=== PATIENT | female | born 1990 | race Caucasian/White ===

== ENCOUNTER 2021-02-01 14:03 | Observation (INO) | payer OTHER ==
--- NOTE | 2021-02-01 16:25 | XRAY ---
Indication: Evaluate SHELDON. Limited OB ultrasound performed to evaluate SHELDON. Single intrauterine with heart rate 123 BPM. Incidental nuchal umbilical cord. Four-quadrant SHELDON is 11.7 cm.
[2021-02-01 16:31] VITALS: BP 117/71; PULSE 108; O2SAT 99
[2021-02-01 16:48] LABS: Amphetamine,Urine NEGATIVE (NEGATIVE); Barbiturate,Urine NEGATIVE (NEGATIVE); Benzodiazepine,Urine NEGATIVE (NEGATIVE); Cocaine,Urine NEGATIVE (NEGATIVE); Methadone,Urine NEGATIVE (NEGATIVE); Opiate,Urine NEGATIVE (NEGATIVE); PCP,Urine NEGATIVE (NEGATIVE); THC,Urine NEGATIVE (NEGATIVE)
== END 2021-02-01 16:15 | disposition home or self-care (01) ==
LOC: OB 14:03
PROVIDERS: ADMIT Family Medicine; ATTEND Family Medicine
DX: Z34.83 Encounter for supervision of other normal pregnancy, third trimester (principal); Z3A.32 32 weeks gestation of pregnancy
CPT/HCPCS: 59025; 76815; 80307; G0378

== ENCOUNTER 2021-02-09 07:58 | Observation (INO) | payer OTHER ==
[2021-02-09 08:33] VITALS: BP 122/59
[2021-02-09 08:42] VITALS: PULSE 92
--- NOTE | 2021-02-09 08:54 | XRAY ---
Indication: Evaluate SHELDON. Limited OB ultrasound performed to evaluate SHELDON. Four-quadrant SHELDON is 15.2 cm, largest pocket 4.6 cm.
== END 2021-02-09 09:07 | disposition home or self-care (01) ==
LOC: OB 07:58
PROVIDERS: ADMIT Family Medicine; ATTEND Family Medicine
DX: Z34.83 Encounter for supervision of other normal pregnancy, third trimester (principal); Z3A.33 33 weeks gestation of pregnancy
CPT/HCPCS: 59025; 76815; G0378

== ENCOUNTER 2021-02-16 07:57 | Observation (INO) | payer OTHER ==
[2021-02-16 08:27] VITALS: BP 103/65; PULSE 98
--- NOTE | 2021-02-16 09:26 | XRAY ---
Indication: Evaluate SHELDON. Limited OB ultrasound demonstrates single intrauterine with heart rate 137 BPM. Four-quadrant SHELDON is 17 cm, previously 15.2 cm on February 09, 2021.
== END 2021-02-16 09:20 | disposition home or self-care (01) ==
LOC: OB 07:57
PROVIDERS: ADMIT Family Medicine; ATTEND Family Medicine
DX: Z34.83 Encounter for supervision of other normal pregnancy, third trimester (principal); Z3A.34 34 weeks gestation of pregnancy
CPT/HCPCS: 59025; 76815; G0378

== ENCOUNTER 2021-02-23 08:07 | Observation (INO) | payer OTHER ==
--- NOTE | 2021-02-23 09:38 | XRAY ---
Indication: Evaluate SHELDON. Limited OB ultrasound performed to evaluate SHELDON. 4 quadrant SHELDON is 18.2 cm, previously 17 cm on February 16, 2021.
== END 2021-02-23 08:50 | disposition home or self-care (01) ==
LOC: OB 08:07
PROVIDERS: ADMIT Family Medicine; ATTEND Family Medicine
DX: Z34.83 Encounter for supervision of other normal pregnancy, third trimester (principal); Z3A.35 35 weeks gestation of pregnancy; Z87.59 Personal history of other complications of pregnancy, childbirth and the puerperium
CPT/HCPCS: 59025; 76815; G0378

== ENCOUNTER 2021-03-02 07:58 | Observation (INO) | payer OTHER ==
--- NOTE | 2021-03-02 09:09 | XRAY ---
Indication: Supervision of . Evaluate SHELDON. Limited OB ultrasound demonstrates single intrauterine with heart rate 120 BPM. Four-quadrant SHELDON is 20.4 cm, previously 18.2 cm on February 23, 2021.
[2021-03-05 17:01] VITALS: BP 113/73; PULSE 94; O2SAT 99
== END 2021-03-02 09:00 | disposition home or self-care (01) ==
LOC: OB 07:58
PROVIDERS: ADMIT Family Medicine; ATTEND Family Medicine
DX: Z34.83 Encounter for supervision of other normal pregnancy, third trimester (principal); Z3A.37 37 weeks gestation of pregnancy
CPT/HCPCS: 59025; 76815; G0378

== ENCOUNTER 2021-03-06 10:24 | Observation (INO) | payer OTHER ==
[2021-03-06 11:06] VITALS: BP 120/76; PULSE 108; O2SAT 100
[2021-03-06 11:21] LABS: BASOPHIL % 0.2 % (0.0-0.4); Basophil (Absolute #) 0.01 (0-0.4); Eosinophil % 0.4 % (0.00-5.0); Eosinophil (Absolute #) 0.02 (0-0.5); Hematocrit 29.7 % (35-47); Lymphocyte (Absolute #) 1.23 (1.0-4.6); Lymphocytes % 23.7 % (24.0-44.0); Mean Cell Volume 72.6 fl (78-100); Mean Corpuscular Hgb Concent. 30.3 g/dl (32-36); Mean Platelet Volume 10.4 fl (7.5-11.0); Monocyte (Absolute #) 0.44 (0.0-1.3); Monocytes % 8.5 % (0.0-12.0); Neutrophil % 67.2 % (36.0-66.0); Platelet Count 157 K/mm3 (150-450); Red Blood Count 4.09 M/mm3 (4.1-5.4); Red Cell Distribution Width 14.4 % (11.5-14.0); White Blood Count 5.2 K/mm3 (4.0-10.5)
[2021-03-06 11:36] LABS: ALBUMIN 2.8 g/dL (3.5-5.0); ALKALINE PHOSPHATASE 117 U/L (38-126); AMYLASE 35 U/L (30-110); ANION GAP 10.4 MEQ/L (5-15); BLOOD UREA NITROGEN 5 mg/dL (7-17); CHLORIDE 105 mmol/L (98-107); Calcium 8.6 mg/dL (8.4-10.2); Carbon Dioxide 23 mmol/L (22-30); Creatinine 1 0.56 mg/dL (0.52-1.04); EST GLOMERULAR FILTRATION RATE > 60.0 ML/MIN; Glucose 82 mg/dL (74-106); Potassium 3.9 mmol/L (3.5-5.1); SGOT/AST 21 U/L (14-36); SGPT/ALT 12 U/L (0-35); SODIUM 135 mmol/L (137-145); Total Protein 5.3 g/dL (6.3-8.2)
--- NOTE | 2021-03-06 12:29 | XRAY ---
Indication: Pain. Ultrasound biophysical profile exam performed. Comparison: None Single intrauterine with heart rate 139 BPM. Four-quadrant SHELDON is 14.5 cm, largest pocket 4.6 cm. 2 points given for breathing, movements, tone, and qualitative amniotic fluid volume. Impression: Total biophysical profile score is 8 out of 8.
--- NOTE | 2021-03-06 12:31 | XRAY ---
Indication: Epigastric pain. Third trimester . Two-dimensional gallbladder sonogram performed. Comparison: None Pancreas not well seen. Gallbladder normally distended without gallstones, wall thickening, or pericholecystic fluid. Common bile duct measures 3.7 mm. Remaining visualized liver and right kidney are sonographically unremarkable. Right kidney measures 11.3 cm in length. Impression: Nonvisualization pancreas. Remaining gallbladder sonogram is negative.
[2021-03-06 13:17] LABS: Slide Review 1 YES
== END 2021-03-06 12:44 | disposition home or self-care (01) ==
LOC: OB 10:24
PROVIDERS: ADMIT Family Medicine; ATTEND Family Medicine
DX: Z34.83 Encounter for supervision of other normal pregnancy, third trimester (principal); Z3A.37 37 weeks gestation of pregnancy
CPT/HCPCS: 36415; 76705; 76819; 80053; 82150; 83690; 85025; G0378

== ENCOUNTER 2021-03-16 07:55 | Observation (INO) | payer OTHER ==
[2021-03-16 09:20] VITALS: BP 121/72; PULSE 98; O2SAT 97
--- NOTE | 2021-03-16 15:04 | XRAY ---
Exam: OB ultrasound Limited from 03/16/2021. Comparison: OB ultrasound Limited from 03/02/2021. Indication: Follow-up SHELDON. Findings: A single live intrauterine fetus is seen in the cephalic lie. The heart rate measured 127 bpm. The amniotic fluid index measured 11.8 cm. This is within normal limits. Prior amniotic fluid index on 03/02/2021 was reported as 20.4 cm. The patient's due date by dates is 03/25/2021. Impression: 1. Current amniotic fluid index measures 11.8 cm, previously 20.4 cm on 03/02/2021.
== END 2021-03-16 09:58 | disposition home or self-care (01) ==
LOC: OB 07:55
PROVIDERS: ADMIT Family Medicine; ATTEND Family Medicine
DX: Z34.83 Encounter for supervision of other normal pregnancy, third trimester (principal); Z3A.38 38 weeks gestation of pregnancy
CPT/HCPCS: 59025; 76815; G0378

== ENCOUNTER 2021-03-19 08:25 | Inpatient (IN) | payer OTHER ==
[2021-03-19] MEDS ORDERED: Zofran 4 MG/2 ML VIAL IV PRN (17:00)
[2021-03-19 17:56] LABS: Absolute Neutrophil Ct (ANC) 2.92 (1.4-6.9); BASOPHIL % 0.4 % (0.0-0.4); Basophil (Absolute #) 0.02 (0-0.4); Eosinophil % 0.4 % (0.00-5.0); Eosinophil (Absolute #) 0.02 (0-0.5); Hematocrit 30.4 % (35-47); Hemoglobin 9.2 gm/dl (12.0-16.0); Lymphocyte (Absolute #) 1.17 (1.0-4.6); Lymphocytes % 25.7 % (24.0-44.0); Mean Cell Volume 70.4 fl (78-100); Mean Corpuscular Hemoglobin 21.3 pg (26-32); Mean Corpuscular Hgb Concent. 30.3 g/dl (32-36); Monocyte (Absolute #) 0.43 (0.0-1.3); Monocytes % 9.4 % (0.0-12.0); Neutrophil % 64.1 % (36.0-66.0); Platelet Count 160 K/mm3 (150-450); Red Blood Count 4.32 M/mm3 (4.1-5.4); White Blood Count 4.6 K/mm3 (4.0-10.5)
[2021-03-19] MEDS ORDERED: Lactated Ringers 1,000 ML IV SCH (18:00)
[2021-03-19] MEDS: CYTOTEC PO SCH ×4 (18:05→22:02)
[2021-03-19 18:21] LABS: Appearance CLOUDY (CLEAR); Bacteria FEW /HPF (NEGATIVE); Bilirubin NEGATIVE (NEGATIVE); Blood NEGATIVE Ery/ul (0-5); Epithelial Cells MODERATE /HPF (FEW); Glucose NEGATIVE (NEGATIVE); Ketones NEGATIVE (NEGATIVE); Leukocyte Esterase LARGE (NEGATIVE); Mucus SLIGHT /HPF (NEGATIVE); Nitrite NEGATIVE (NEGATIVE); Protein,Urine Dip NEGATIVE (Negative); Specific Gravity 1.018 (1.005-1.025); Urobilinogen NEGATIVE mg/dL (0-1)
[2021-03-19 18:27] LABS: Amphetamine,Urine NEGATIVE (NEGATIVE); Barbiturate,Urine NEGATIVE (NEGATIVE); Benzodiazepine,Urine NEGATIVE (NEGATIVE); Cocaine,Urine NEGATIVE (NEGATIVE); Methadone,Urine NEGATIVE (NEGATIVE); Opiate,Urine NEGATIVE (NEGATIVE); PCP,Urine NEGATIVE (NEGATIVE); THC,Urine NEGATIVE (NEGATIVE)
[2021-03-19 19:13] LABS: ABO TYPING B; Antibody Screen NEGATIVE (NEGATIVE); RH TYPING POSITIVE
[2021-03-19 19:51] LABS: Slide Review 1 YES
[2021-03-19] MEDS ORDERED: BRETHINE 1 MG/ML SQ PRN (20:07)
[2021-03-20] MEDS: CYTOTEC PO SCH ×4 (02:02→06:01)
[2021-03-20] MEDS: PITOCIN 30 UNITS/ LR 500 ML 30 UNITS/500 ML PLAST..BAG IV SCH (06:00)
[2021-03-20] MEDS ORDERED: PITOCIN 30 UNITS/ LR 500 ML 30 UNITS/500 ML PLAST..BAG IV SCH (06:00)
[2021-03-20] MEDS: Lactated Ringers 1,000 ML IV SCH ×4 (06:01→16:11)
[2021-03-20] MEDS ORDERED: Ephedrine Sulfate 50 MG/ML IV PRN (08:52)
[2021-03-20] MEDS ORDERED: FENTANYL 2 MCG-BUPIV 0.125%-NS 250 ML Epidur 250 ML EPIDURAL SCH (09:00)
[2021-03-20] MEDS ORDERED: Adacel Vial IM ONE (10:00)
[2021-03-20] MEDS ORDERED: Lactated Ringers 1,000 ML IV ONE (10:09)
[2021-03-20] MEDS ORDERED: XYLOCAINE 1% HCL 20 ML MDV ONE (10:41)
[2021-03-20] MEDS ORDERED: XYLOCAINE 1% HCL 20 ML MDV IJ PRN (14:00)
[2021-03-20] MEDS ORDERED: Reglan 10 MG/2 ML IV SCH (19:00)
[2021-03-20] MEDS ORDERED: SOD CITRATE-CITRIC ACID SOLN PO SCH (19:00)
[2021-03-20] MEDS ORDERED: Pepcid 20 MG VIAL IV SCH (19:00)
[2021-03-20] MEDS ORDERED: CEFAZOLIN 2 GM-D5W BAG** 2 GM/50 ML ML IV SCH (19:00)
[2021-03-20 19:02] LABS: Hematocrit 32.3 % (35-47); Hemoglobin 9.7 gm/dl (12.0-16.0); Mean Cell Volume 71.3 fl (78-100); Mean Corpuscular Hemoglobin 21.4 pg (26-32); Mean Platelet Volume 11.1 fl (7.5-11.0); Platelet Count 202 K/mm3 (150-450); Red Blood Count 4.53 M/mm3 (4.1-5.4); Red Cell Distribution Width 15.3 % (11.5-14.0); White Blood Count 14.1 K/mm3 (4.0-10.5)
[2021-03-20] MEDS ORDERED: SUBLIMAZE 100 MCG/2 ML ONE (19:16)
[2021-03-20] MEDS ORDERED: XYLOCAINE 2%/Epi 1:200000 20ML VIAL MPF ONE (19:17)
[2021-03-20 19:18] LABS: INR 0.98 (0.8-3.0); PROTIME 11.6 SECONDS (9.4-12.5)
[2021-03-20 19:21] LABS: PTT 25.8 SECONDS (25.1-36.5)
[2021-03-20] MEDS ORDERED: DIPRIVAN 200 MG/20 ML IV ONE (19:54)
[2021-03-20] MEDS ORDERED: LOPRESSOR 5 MG/5 ML INJECTION IV ONE (20:10)
[2021-03-20] MEDS ORDERED: PHENYLEPHRINE HCL ONE (20:10)
[2021-03-20] MEDS ORDERED: Astramorph-Pf 5 MG/10 ML ONE (20:10)
[2021-03-20] MEDS ORDERED: Nesacaine 3% -Mpf*** 20ML SDV ONE ×2 (20:14)
[2021-03-20] MEDS ORDERED: LANSINOH 40 GM TOP PRN (20:23)
[2021-03-20] MEDS ORDERED: CORTISONE 1% CREAM TP PRN (20:23)
[2021-03-20] MEDS ORDERED: Dulcolax 10 MG SUPP PR PRN (20:23)
[2021-03-20] MEDS ORDERED: Dermoplast Spray TP PRN (20:23)
[2021-03-20] MEDS ORDERED: TUCKS TP PRN (20:23)
[2021-03-20] MEDS ORDERED: Anucort-HC SUPPOSITORY PR PRN (20:23)
[2021-03-20] MEDS ORDERED: Mylicon 80MG PO PRN (20:23)
[2021-03-20] MEDS ORDERED: CLARITIN 10 MG PO PRN (20:33)
[2021-03-20] MEDS ORDERED: PERCOCET TABLET 5/325MG PO PRN (20:33)
[2021-03-20] MEDS ORDERED: DEMEROL 50 MG IV PRN (20:33)
[2021-03-20] MEDS ORDERED: Narcan 0.4 MG/ML IV PRN (20:33)
[2021-03-20] MEDS ORDERED: BENADRYL 50 MG/ML IV PRN (20:33)
[2021-03-20] MEDS ORDERED: MORPHINE SULFATE 2 MG INJ IV PRN (20:33)
[2021-03-20] MEDS ORDERED: HOLD NARCOTIC ANALGESICS AND SEDATIVES X24 HR MC PRN (20:33)
[2021-03-20] MEDS ORDERED: Nubain 10 MG/ML IV PRN (20:33)
[2021-03-20] MEDS ORDERED: Naropin 0.5% 30 ML VIAL ONE (20:39)
[2021-03-20] MEDS: Dextrose 5%-Lr IV Solution 1000 ML 1,000 ML IV SCH (21:13)
[2021-03-20 23:14] LABS: Appearance SLIGHTLY CLOUDY (CLEAR); Bilirubin NEGATIVE (NEGATIVE); Blood LARGE Ery/ul (0-5); Glucose NEGATIVE (NEGATIVE); Hyaline Casts 0-2 /LPF (0-2); Ketones MODERATE (NEGATIVE); Leukocyte Esterase TRACE (NEGATIVE); Mucus SLIGHT /HPF (NEGATIVE); Nitrite NEGATIVE (NEGATIVE); Protein,Urine Dip 100 (Negative); RBC >101 /HPF (0-2); Specific Gravity 1.015 (1.005-1.025); Urobilinogen NEGATIVE mg/dL (0-1)
[2021-03-21] MEDS: Dextrose 5%-Lr IV Solution 1000 ML 1,000 ML IV SCH ×3 (05:00→21:43)
[2021-03-21 05:19] LABS: Absolute Neutrophil Ct (ANC) 9.54 (1.4-6.9); BASOPHIL % 0.1 % (0.0-0.4); Basophil (Absolute #) 0.01 (0-0.4); Eosinophil (Absolute #) 0 (0-0.5); Hematocrit 23.1 % (35-47); Lymphocyte (Absolute #) 0.65 (1.0-4.6); Mean Cell Volume 71.5 fl (78-100); Mean Corpuscular Hemoglobin 21.1 pg (26-32); Mean Corpuscular Hgb Concent. 29.4 g/dl (32-36); Mean Platelet Volume 11.7 fl (7.5-11.0); Monocyte (Absolute #) 0.64 (0.0-1.3); Monocytes % 5.9 % (0.0-12.0); Platelet Count 165 K/mm3 (150-450); Red Blood Count 3.23 M/mm3 (4.1-5.4); Red Cell Distribution Width 14.9 % (11.5-14.0); White Blood Count 10.8 K/mm3 (4.0-10.5)
[2021-03-21 05:41] LABS: Hemoglobin 6.8 gm/dl (12.0-16.0)
--- NOTE | 2021-03-21 08:21 | OP ---
SURGERY DATE/TIME: 03/20/20211932 PREOPERATIVE DIAGNOSES: 1) Arrest of descent. 2) Term intrauterine . POSTOPERATIVE DIAGNOSES: 1) Arrest of descent. 2) macrosomia. 3) Cephalopelvic disproportion. PROCEDURE: Primary low transverse section. SURGEON: Alexx Lake M.D. ANESTHESIA: Epidural by Zac Davison CRNA. ESTIMATED BLOOD LOSS: 600 ml. IV FLUIDS: 800 ml of Crystalloid. URINE OUTPUT: 200 ml of clear straw-colored urine. SPECIMEN: Placenta was sent for pathology. DESCRIPTION OF PROCEDURE: The patient had progressed to full dilatation and pushed for over two hours of only caput below the +1 station. Therefore, she was consented for primary low transverse section. She was dosed in her labor room via her previously placed laboring epidural and then taken to the OR. Prepped and draped in the usual sterile fashion. After adequate level of anesthesia was assessed, a low transverse skin incision was made by knife and carried down through the subcutaneous fat to the level of the fascia. The fascia was nicked on both sides of the midline and extended horizontal using curved Sanchez scissors. The superior free edge of the fascia was grasped with Sanam clamps and the underlying rectus muscles were dissected free. The same was repeated inferiorly. The peritoneal cavity was opened and extended in horizontal bluntly. A bladder blade was created and reflected over the lower uterine segment. A transverse uterine incision was made by knife and carried down to the level of the amniotic membranes which were carefully artificially ruptured. A viable male with a nuchal cord x1 was delivered from the right occiput posterior presentation. The oropharynx and nares were bulb suctioned free. He had a strong cry immediately upon delivery. The cord was clamped and cut and he was handed off to the awaiting nursery team. Then the placenta was manually extracted. The uterus was exteriorized. The uterine cavity was sponge curetted clean with a lap sponge. The uterine incision was closed with #1 chromic in a running locked fashion with good closure and good hemostasis. There was some mild oozing from the left far lateral aspect of the incision. Therefore, a second layer of #1 chromic was used to reinforce this area and provide hemostasis. Posterior cul-de-sac was wiped free of blood and clot and the uterus was returned to the peritoneal cavity. The lateral gutters were wiped free of blood and clot. There was a small area of oozing noted after the uterus was returned to the peritoneal cavity around the left lateral aspect of the incision. 2-0 Vicryl was placed in a figure-of-8 fashion with good hemostasis achieved. No other abnormalities were noted. There was good hemostasis and good uterine closure. Next, the fascia was closed with 0 Vicryl in a running fashion with good closure and good hemostasis. The subcutaneous fat was irrigated with warm, sterile saline. Finally, the skin layer was closed with 4-0 undyed Vicryl in a running subcuticular fashion. Steri-Strips and occlusive dressing were placed over the incision and the patient was transferred to the recovery room in good condition.
[2021-03-21 08:30] LABS: Slide Review 1 YES
[2021-03-21 11:45] LABS: HBsAg Screen Negative (Negative)
[2021-03-21] MEDS: FERREX 150 PO SCH (12:09)
[2021-03-21] MEDS: Colace 100 MG PO SCH ×2 (12:09→21:51)
[2021-03-21] MEDS: MOTRIN 400 MG PO PRN ×2 (12:12→18:40)
[2021-03-21] MEDS: TYLENOL EXTRA STRENGTH 500 MG PO PRN ×2 (14:57→21:51)
[2021-03-21] MEDS ORDERED: Restoril 15 MG PO PRN (20:23)
[2021-03-21] MEDS ORDERED: Ambien 10 MG PO PRN (20:23)
[2021-03-21] MEDS ORDERED: NORCO 5/325 MG PO PRN (21:00)
[2021-03-21] MEDS ORDERED: DEMEROL 50 MG IV PRN (21:00)
[2021-03-21] MEDS: CYTOTEC PO SCH ×4 (21:38→21:41)
[2021-03-21] MEDS: PITOCIN 30 UNITS/ LR 500 ML 30 UNITS/500 ML PLAST..BAG IV SCH (21:43)
[2021-03-22] MEDS: MOTRIN 400 MG PO PRN ×2 (01:10→09:26)
[2021-03-22] MEDS: TYLENOL EXTRA STRENGTH 500 MG PO PRN (03:59)
--- NOTE | 2021-03-22 08:10 | PCM.DS ---
Discharge Summary Date of Admission: 03/20/21 08:25 Admitting Physician: TRAY BARRAGAN Consults: Consults on Case 03/20/21 08:52 Notify Anesthesia Provider PRN Primary Care Provider: TRAY BARRAGAN Allergies Allergies No Known Drug Allergies Allergy (Verified 03/21/21 21:46) Hospital Summary - Hospital Course Hospital Course: patient had primary for cpd, baby 9#4oz. arrival hemoglobin 9.2 postop 6.8 but asymptomatic. pain well controlled with tylenol and motrin. feels well - Vitals & Intake/Output Vital Signs: Vital Signs Temperature 97.2 F 03/22/21 02:00 Pulse Rate 82 03/22/21 02:00 Respiratory Rate 17 03/22/21 02:00 Blood Pressure 109/69 03/22/21 02:00 O2 Sat by Pulse Oximetry 99 03/22/21 02:00 Intake & Output: Intake & Output 03/19/21 03/20/21 03/21/21 03/22/21 11:59 11:59 11:59 11:59 Intake Total 5000 6781 2300 Output Total 1000 2650 1500 Balance 4000 4131 800 Weight 92.986 kg 92.986 kg - Lab Result Diagrams: 03/21/21 04:23 Lab Results-Last 24 Hrs: Lab Results-Last 24 Hours 03/19/21 03/21/21 Range/Units 17:41 04:23 Hep Bs Antigen Negative (Negative) Slides for Path Review YES Micro Results-Entire Visit: Microbiology 03/19/21 17:00 Urine Culture - Final Clean Catch Midstream <10K NORMAL SKIN DELGADO PROBABLE SKIN CONTAMINANT - Procedures and Test Procedures and Tests throughout Hospitalization: Therapy Orders & Screens 03/20/21 20:30 Standby ROUTINE Comment: Diagnosis: Induction of Labor Discharge Exam General Appearance: no apparent distress, alert Respiratory Exam: normal breath sounds, lungs clear, No respiratory distress Cardiovascular Exam: regular rate/rhythm, normal heart sounds Gastrointestinal/Abdomen Exam: soft, other (incision clean, dry, intact), No tenderness, No mass Extremity Exam: normal inspection, normal range of motion Final Diagnosis/Problem List - Final Discharge Diagnosis/Problem (1) delivery delivered Current Visit: Yes Status: Acute Code(s): O82 - ENCOUNTER FOR DELIVERY WITHOUT INDICATION (2) Anemia due to blood loss Current Visit: Yes Status: Acute Code(s): D50.0 - IRON DEFICIENCY ANEMIA SECONDARY TO BLOOD LOSS (CHRONIC) - Discharge Disposition: Home, Self-Care Condition: Stable Prescriptions: New Docusate Sodium [Colace] 100 mg PO BID #60 Continue Ferrous Sulfate 325 mg [Feosol 325 mg] 1 tab PO BID Vits W-Ca,Fe,FA(<1Mg) [] 1 tab PO DAILY Follow up with: TRAY BARRAGAN MD [Primary Care Provider] - 1 Week
[2021-03-22] MEDS: FERREX 150 PO SCH (09:27)
[2021-03-22] MEDS: Colace 100 MG PO SCH (09:27)
[2021-03-22] MEDS ORDERED: Adacel Vial IM ONE (10:00)
[2021-03-22 10:50] VITALS: BP 126/70; PULSE 110; O2SAT 100
== END 2021-03-22 16:10 | disposition home or self-care (01) | DRG 788 ==
LOC: OB 08:25 → OBSVTOIN 03-20 08:25 → OB 03-20 08:26
PROVIDERS: ADMIT Family Medicine; ATTEND Family Medicine
PROC: 10D00Z1 Extraction of Products of Conception, Low, Open Approach (ICD-10-PCS; principal; 2021-03-20)
DX: O33.9 Maternal care for disproportion, unspecified (principal); O33.5XX0 Maternal care for disproportion due to unusually large fetus, not applicable or unspecified; Z3A.39 39 weeks gestation of pregnancy; Z37.0 Single live birth; D50.9 Iron deficiency anemia, unspecified
CPT/HCPCS: 36415; 64488; 76937; 76942; 80307; 81001; 82947; 85025; 85027; 85610; 85730; 86850; 86900; 86901; 87086; 87340; 90715; 94799; G0378; J0690; J2274; J2370; J2590; J2704; J2795; J3010; L0625; A9270-GY

== ENCOUNTER 2023-07-02 04:56 | Inpatient (IN) | payer OTHER ==
[~2023-07-02 04:56] MED LIST: Anucort-HC SUPPOSITORY PR PRN
[2023-07-02 05:32] LABS: Absolute Neutrophil Ct (ANC) 3.68 x10^3/uL (1.4-6.9); BASOPHIL % 0.3 % (0.0-0.4); Basophil (Absolute #) 0.02 x10^3/uL (0-0.4); Eosinophil % 0.8 % (0.00-5.0); Eosinophil (Absolute #) 0.05 x10^3/uL (0-0.5); Hematocrit 33.4 % (35-47); Hemoglobin 10.3 g/dL (12.0-16.0); IMMATURE GRAN # 0.03 x10^3u/L (0.00-0.03); IMMATURE GRAN % 0.5 % (0.00-0.4); Lymphocyte (Absolute #) 1.73 x10^3/uL (1.0-4.6); Mean Cell Volume 71.1 fL (78-100); Mean Corpuscular Hemoglobin 21.9 pg (26-32); Mean Corpuscular Hgb Concent. 30.8 g/dL (32-36); Mean Platelet Volume 10.8 fL (7.5-11.0); Monocyte (Absolute #) 0.46 x10^3/uL (0.0-1.3); Monocytes % 7.7 % (0.0-12.0); Neutrophil % 61.7 % (36.0-66.0); Platelet Count 171 x10^3/uL (150-450); Red Cell Distribution Width 15.2 % (11.5-14.0)
[2023-07-02 05:47] LABS: INR 0.89 (0.8-3.0); PROTIME 9.8 SECONDS (9.4-12.5); PTT 25.2 SECONDS (25.1-36.5)
[2023-07-02 05:54] LABS: Amphetamine,Urine NEGATIVE (NEGATIVE); Barbiturate,Urine NEGATIVE (NEGATIVE); Benzodiazepine,Urine NEGATIVE (NEGATIVE); Cocaine,Urine NEGATIVE (NEGATIVE); Methadone,Urine NEGATIVE (NEGATIVE); Opiate,Urine NEGATIVE (NEGATIVE); PCP,Urine NEGATIVE (NEGATIVE); THC,Urine NEGATIVE (NEGATIVE)
[2023-07-02 05:55] LABS: Appearance Turbid (Clear); Bacteria Many /HPF (None Seen); Bilirubin Negative (Negative); Blood Negative (Negative); Epithelial Cells Many /HPF (None Seen); Glucose, Urine Negative (Negative); Ketones Trace (Negative); Leukocyte Esterase Moderate (Negative); Nitrite Negative (Negative); Ph 5.5 (4.6-8.0); Protein,Urine Dip Trace (Negative); Specific Gravity 1.025 (1.005-1.030)
[2023-07-02 06:06] LABS: Hyaline Casts 0-2 /LPF (0-2)
[2023-07-02 06:07] LABS: ADD URINE CULTURE? YES (NO)
[2023-07-02 06:11] LABS: ABO TYPING B; Antibody Screen NEGATIVE (NEGATIVE); RH TYPING POSITIVE
[2023-07-02] MEDS: Lactated Ringers 1,000 ML IV ONE (07:41)
[2023-07-02] MEDS: Reglan 10 MG/2 ML IV SCH (07:47)
[2023-07-02] MEDS: Pepcid 20 MG VIAL IV SCH (07:47)
[2023-07-02] MEDS: SOD CITRATE-CITRIC ACID SOLN PO SCH (07:47)
[2023-07-02] MEDS: CEFAZOLIN 2 GM-D5W BAG** 2 GM/50 ML ML IV SCH (07:48)
[2023-07-02] MEDS: Lactated Ringers 1,000 ML IV SCH (08:04)
[2023-07-02] MEDS ORDERED: Astramorph-Pf 5 MG/10 ML ONE (08:05)
[2023-07-02] MEDS ORDERED: Pitocin 10 UNITS/ML ONE (08:21)
[2023-07-02] MEDS ORDERED: PHENYLEPHRINE HCL ONE (08:39)
[2023-07-02] MEDS ORDERED: Naropin 0.5% 30 ML VIAL ONE (08:51)
[2023-07-02] MEDS ORDERED: Epinephrine Preservative Free 1 MG/ML ONE (08:51)
[2023-07-02] MEDS ORDERED: Versed 2 MG/2 ML Injection ONE (08:56)
[2023-07-02] MEDS ORDERED: Narcan 0.4 MG/ML IV PRN (09:00)
[2023-07-02] MEDS ORDERED: HOLD NARCOTIC ANALGESICS AND SEDATIVES X24 HR MC PRN (09:00)
[2023-07-02] MEDS ORDERED: DEMEROL 50 MG ONE (09:27)
[2023-07-02] MEDS ORDERED: Zofran 4 MG/2 ML VIAL ONE (09:56)
[2023-07-02] MEDS ORDERED: Nubain 10 MG/ML IV PRN (10:00)
[2023-07-02] MEDS ORDERED: DEMEROL 50 MG IV PRN (10:00)
[2023-07-02] MEDS ORDERED: BENADRYL 50 MG/ML IV PRN (10:00)
[2023-07-02] MEDS ORDERED: CLARITIN 10 MG PO PRN (10:00)
[2023-07-02] MEDS ORDERED: PERCOCET TABLET 5/325MG PO PRN (10:00)
[2023-07-02] MEDS ORDERED: CORTISONE 1% CREAM TP PRN (10:00)
[2023-07-02] MEDS ORDERED: Mylicon 80MG PO PRN (10:00)
[2023-07-02] MEDS ORDERED: MORPHINE SULFATE 2 MG INJ IV PRN (10:00)
[2023-07-02] MEDS ORDERED: LANSINOH 40 GM TOP PRN (10:00)
[2023-07-02] MEDS: Dextrose 5%-Lr IV Solution 1000 ML 1,000 ML IV SCH (10:31)
[2023-07-02] MEDS: Zofran 4 MG/2 ML VIAL IV PRN (11:08)
[2023-07-02] MEDS: D50W 50 ml Abboject IV ONE (13:58)
[2023-07-02] MEDS: Compazine 10 MG/2 ML IV PRN (13:58)
--- NOTE | 2023-07-02 15:11 | OP ---
SURGERY DATE/TIME: 07/02/2023 0823 PREOPERATIVE DIAGNOSES: 1) Term intrauterine . 2) History of prior section. 3) Diet controlled gestational diabetes. 4) History of previous demise at term. 5) Desires permanent sterilization. POSTOPERATIVE DIAGNOSES: 1) Term intrauterine . 2) History of prior section. 3) Diet controlled gestational diabetes. 4) History of previous demise at term. 5) Desires permanent sterilization. PROCEDURES: 1) Repeat low transverse section. 2) Bilateral tubal ligation. SURGEON: Alexx Lake M.D. QUANTITATIVE BLOOD LOSS: 384 ml. URINE OUTPUT: Clear straw-colored urine after procedure completed. ANESTHESIA: Spinal by Mian Barnett CRNA. SPECIMENS: 1) Bilateral fallopian tube segments. 2) Placenta was sent for pathology. DESCRIPTION OF PROCEDURE: After informed written consent was obtained, the patient was taken to the operating room. She underwent spinal anesthesia and was prepped and draped in the usual sterile fashion. Prior to the procedure, I reviewed that bilateral tubal ligation was permanent and that the patient had previously signed in the office on 04/24/2023. She elected to proceed at the time of surgery with the understanding that this is a permanent sterilization procedure. After adequate level of anesthesia was assessed, a low transverse skin incision was made by knife in lower uterine segment and extended horizontal using curved Sanchez scissors. The superior free edge of the fascia was grasped with Sanam clamps and the underlying rectus muscles were dissected free. The same was repeated inferiorly. The peritoneal cavity was opened and extended horizontal bluntly. A bladder flap was created and reflected over the lower uterine segment. Horizontal uterine incision was made by knife and carried down to the level of the amniotic membranes which were carefully artificially ruptured. A viable male infant was delivered from the vertex presentation with a strong cry immediately upon delivery. Good tone, good color and good respiratory effort were observed on the operative field. The cord was clamped and cut and he was handed off to the awaiting nursery team. The placenta was then manually extracted from the uterine cavity. The uterus was then exteriorized and sponge curetted clean with lap sponge. Finally, the uterine incision was closed with #1 chromic in a running locked fashion with good closure and good hemostasis at that level. The left fallopian tube was then identified and followed to the fimbrial egde grasped with a Chava and a window was made in the mesoappendix. Proximal and distal tube segments were then ligated with a chromic tie. Interceding tube segment was dissected free with Metzenbaum scissors. The edge of the tube was cauterized with electrocautery. The tube segment was sent for pathology. The same was repeated on the right side. The posterior cul-de-sac was wiped free of blood and clot, irrigated and the uterus was returned to the peritoneal cavity. Lateral gutters were wiped free of blood and clot. The uterus was noted to be hemostatic with good closure at that time. Both areas of tubal were noted to be hemostatic and intact. Next, the fascia was closed with 0 Vicryl in running fashion with good closure and good hemostasis achieved at that level. Subcutaneous fat was irrigated with warm, sterile saline. Any areas of bleeding were cauterized with electrocautery. The subcutaneous fat space was closed with 2-0 Vicryl interrupted sutures and the skin layer was closed with 4-0 undyed Vicryl in a running subcuticular fashion. Steri-Strips and occlusive dressing were placed over the incision and the patient was transferred to the recovery room in good condition.
[2023-07-02] MEDS: MOTRIN 400 MG PO PRN (18:12)
[2023-07-02] MEDS: Docusate Sodium 100 MG PO SCH (21:57)
[2023-07-02] MEDS: TYLENOL EXTRA STRENGTH 500 MG PO PRN (22:14)
[2023-07-02] MEDS: TORAdol 30 mg Injection IV PRN (23:56)
[2023-07-03 04:22] VITALS: BP 121/71; PULSE 70; RESP 17; TEMP 98.7
[2023-07-03 05:19] LABS: Absolute Neutrophil Ct (ANC) 5.36 x10^3/uL (1.4-6.9); BASOPHIL % 0.3 % (0.0-0.4); Basophil (Absolute #) 0.02 x10^3/uL (0-0.4); Eosinophil % 0.6 % (0.00-5.0); Eosinophil (Absolute #) 0.05 x10^3/uL (0-0.5); Hematocrit 29.1 % (35-47); Hemoglobin 8.8 g/dL (12.0-16.0); IMMATURE GRAN # 0.02 x10^3u/L (0.00-0.03); IMMATURE GRAN % 0.3 % (0.00-0.4); Lymphocyte (Absolute #) 1.69 x10^3/uL (1.0-4.6); Lymphocytes % 21.7 % (24.0-44.0); Mean Cell Volume 71.5 fL (78-100); Mean Corpuscular Hemoglobin 21.6 pg (26-32); Mean Corpuscular Hgb Concent. 30.2 g/dL (32-36); Mean Platelet Volume 10.6 fL (7.5-11.0); Monocyte (Absolute #) 0.64 x10^3/uL (0.0-1.3); Monocytes % 8.2 % (0.0-12.0); Neutrophil % 68.9 % (36.0-66.0); Platelet Count 141 x10^3/uL (150-450); Red Blood Count 4.07 x10^6/uL (4.1-5.4); Red Cell Distribution Width 15.5 % (11.5-14.0); White Blood Count 7.8 x10^3/uL (4.0-10.5)
[2023-07-03 08:01] VITALS: O2SAT 100
--- NOTE | 2023-07-03 08:38 | PCM.DS ---
Discharge Summary Date of Admission: 07/02/23 04:56 Admitting Physician: TRAY BARRAGAN Consults: Consults on Case 07/02/23 05:00 Notify Anesthesia Provider ROUTINE 07/02/23 11:59 Navigation ONCE Primary Care Provider: TRAY BARRAGAN Allergies Allergies No Known Drug Allergies Allergy (Verified 06/04/23 12:59) Hospital Summary - Hospital Course Hospital Course: patient had repeat with bilateral tubal ligation on 07/01, baby was transferred to NICU for respiratory distress. she is doing well postop, mild lochia, pain is well controlled with tylenol and ibuprofen, ambulating and tolerating po - Vitals & Intake/Output Vital Signs: Vital Signs Temperature 98.7 F 07/03/23 04:00 Pulse Rate 70 07/03/23 04:00 Respiratory Rate 17 07/03/23 04:00 Blood Pressure 121/71 07/03/23 04:00 O2 Sat by Pulse Oximetry 100 07/03/23 08:00 Intake & Output: Intake & Output 06/30/23 07/01/23 07/02/23 07/03/23 11:59 11:59 11:59 11:59 Intake Total 2775 Output Total 225 3625 Balance -225 -850 Weight 87.543 kg - Lab Result Diagrams: 07/03/23 04:55 Lab Results-Last 24 Hrs: Lab Results-Last 24 Hours 07/02/23 07/02/23 07/03/23 Range/Units 13:24 15:14 04:55 WBC 7.8 (4.0-10.5) x10^3/uL RBC 4.07 L (4.1-5.4) x10^6/uL Hgb 8.8 L (12.0-16.0) g/dL Hct 29.1 L (35-47) % MCV 71.5 L (78-100) fL MCH 21.6 L (26-32) pg MCHC 30.2 L (32-36) g/dL RDW 15.5 H (11.5-14.0) % Plt Count 141 L (150-450) x10^3/uL MPV 10.6 (7.5-11.0) fL Gran % 68.9 H (36.0-66.0) % Immature Gran % (Auto) 0.3 (0.00-0.4) % Nucleat RBC Rel Count 0.0 (0.00-0.1) % Eos # (Auto) 0.05 (0-0.5) x10^3/uL Immature Gran # (Auto) 0.02 (0.00-0.03) x10^3u/L Absolute Lymphs (auto) 1.69 (1.0-4.6) x10^3/uL Absolute Monos (auto) 0.64 (0.0-1.3) x10^3/uL Absolute Nucleated RBC 0.00 (0.00-0.01) x10^3u/L Lymphocytes % 21.7 L (24.0-44.0) % Monocytes % 8.2 (0.0-12.0) % Eosinophils % 0.6 (0.00-5.0) % Basophils % 0.3 (0.0-0.4) % Absolute Granulocytes 5.36 (1.4-6.9) x10^3/uL Basophils # 0.02 (0-0.4) x10^3/uL POC Glucometer 58 L 103 (74 to 106) mg/dL Micro Results-Entire Visit: Accuchecks Date 07/02/23 Date 07/02/23 Time 15:15 Time 13:25 - Procedures and Test Procedures and Tests throughout Hospitalization: Therapy Orders & Screens 07/02/23 11:03 Standby ROUTINE Comment: Diagnosis: Scheduled repeat section Discharge Exam General Appearance: no apparent distress Neurologic Exam: alert Respiratory Exam: normal breath sounds, lungs clear, No respiratory distress Cardiovascular Exam: regular rate/rhythm, normal heart sounds Gastrointestinal/Abdomen Exam: soft, other (fundus firm, optifoam dressing clean dry and intact) Extremity Exam: normal inspection, normal range of motion Final Diagnosis/Problem List - Final Discharge Diagnosis/Problem (1) delivery delivered Current Visit: No Status: Acute Assessment & Plan: will need seen next week for removal of optifoam dressing Code(s): O82 - ENCOUNTER FOR DELIVERY WITHOUT INDICATION (2) S/P tubal ligation Current Visit: Yes Status: Acute Code(s): Z98.51 - TUBAL LIGATION STATUS - Discharge Disposition: Home, Self-Care Condition: Good Prescriptions: New Iron Polysaccharides Complex [Ferrex 150] 150 mg PO DAILY cap Continue Vits W-Ca,Fe,FA(<1Mg) [] 1 tab PO DAILY Follow up with: SNEHA VASQUEZ, VICE [employer] [[employer]IED HEALTH PROFESSION STAFF] - 1 Week (dressing removal and wound check)
[2023-07-03] MEDS ORDERED: NORCO 5/325 MG PO PRN (09:00)
[2023-07-03] MEDS: FERREX 150 PO SCH (09:17)
== END 2023-07-03 14:00 | disposition home or self-care (01) | DRG 785 ==
LOC: OB 04:56
PROVIDERS: ADMIT Family Medicine; ATTEND Family Medicine
PROC: 10D00Z1 Extraction of Products of Conception, Low, Open Approach (ICD-10-PCS; principal; 2023-07-02)
PROC: 0UT70ZZ Resection of Bilateral Fallopian Tubes, Open Approach (ICD-10-PCS; 2023-07-02)
DX: O24.420 Gestational diabetes mellitus in childbirth, diet controlled (principal); Z3A.38 38 weeks gestation of pregnancy; Z37.0 Single live birth; Z30.2 Encounter for sterilization; Z20.828 Contact with and (suspected) exposure to other viral communicable diseases; Z87.59 Personal history of other complications of pregnancy, childbirth and the puerperium
CPT/HCPCS: 36415; 64488; 76937; 80307; 81001; 82947; 85025; 85610; 85730; 86850; 86900; 86901; 87086; 94799; J0171; J0690; J1885; J2175; J2250; J2274; J2371; J2405; J2590; J2795; L0625; A9270-GY